=== PATIENT | female | born 1985 | race Caucasian/White ===

== ENCOUNTER 2019-10-20 21:51 | Emergency (ER) | payer BC, SELFPAY ==
[~2019-10-20] VITALS: Ht 177.8 cm; Wt 62.6 kg
[2019-10-20 21:55] VITALS: BP_SYST 130
[2019-10-20 22:37] LABS: BASOPHILS # (AUTO) 0.1 K/uL (0.0-0.2); BASOPHILS % (AUTO) 0.5 % (0.0-2.0); EOSINOPHILS # (AUTO) 0.5 K/uL (0.0-0.4); EOSINOPHILS % (AUTO) 4.5 % (0.0-4.0); HEMATOCRIT 47.1 % (36-48); HEMOGLOBIN 16.5 g/dL (12.0-16.0); LYMPHOCYTES # (AUTO) 4.7 K/uL (1.0-5.5); LYMPHOCYTES % (AUTO) 39.2 % (20.5-51.5); MEAN CORPUSCULAR HEMOGLOBIN 35 pg (27-31); MEAN CORPUSCULAR HGB CONC 35 % (32-36); MEAN CORPUSCULAR VOLUME 100 fL (79.0-98.0); MONOCYTES # (AUTO) 1.2 K/uL (0.0-1.0); MONOCYTES % (AUTO) 9.7 % (1.7-9.3); NEUTROPHILS # (AUTO) 5.5 K/uL (1.8-7.7); NEUTROPHILS % (AUTO) 46.1 % (40.0-70.0); PLATELET COUNT (AUTO) 222 K/uL (130-430); RED CELL DISTRIBUTION WIDTH 12.2 % (9.0-15.0); WHITE BLOOD COUNT (AUTO) 11.9 K/uL (4.8-10.8)
[2019-10-20] MEDS: ASPIRIN 81 MG TAB.CHEW PO ONE (22:38)
[2019-10-20 22:49] LABS: CALCIUM 8.5 mg/dL (8.4-11.0); CREATININE 0.91 mg/dL (0.55-1.30)
[2019-10-20 22:55] LABS: ALBUMIN 4.1 g/dL (3.4-4.8); TOTAL BILIRUBIN 0.9 mg/dL (0.0-1.0)
[2019-10-20 22:58] LABS: PROTHROMBIN TIME 10.2 SECS (9.5-12.5)
[2019-10-20 22:58] LABS: POTASSIUM 2.5 mmol/L (3.5-5.1)
[2019-10-20] MEDS: KCL 20 mEq in 100 mL (PREMIX) 100 ML IV ONE (23:10)
[2019-10-20] MEDS: POTASSIUM CHLORIDE 20 MEQ TAB.PRT.SR PO ONE (23:11)
[2019-10-21 00:33] LABS: BILIRUBIN,URINE NEGATIVE (NEGATIVE); BLOOD, URINE NEGATIVE (NEGATIVE); CLARITY/URINE CLEAR (CLEAR); COLOR,URINE YELLOW (YELLOW); GLUCOSE,URINE NEGATIVE (NEGATIVE); KETONES,URINE TRACE (NEGATIVE); LEUKOCYTE ESTERASE ,URINE NEGATIVE (NEGATIVE); NITRITE, URINE NEGATIVE (NEGATIVE); PROTEIN URINE NEGATIVE (NEGATIVE); UROBILINOGEN,URINE 0.2 (0.2-1.0)
[2019-10-21] MEDS: KETOROLAC TROMETHAMINE 30 MG VIAL IVP ONE (01:48)
[2019-10-21] MEDS: POTASSIUM CHLORIDE 20 MEQ TAB.PRT.SR PO ONE (02:13)
[2019-10-21 02:59] VITALS: BP_SYST 130
== END 2019-10-21 03:01 | disposition home or self-care (01) ==
LOC: SED 21:51 → EEVIPCON 21:51 → SED 10-21 03:01
DX: R07.89 Other chest pain (principal); E87.6 Hypokalemia; I10 Essential (primary) hypertension; F17.200 Nicotine dependence, unspecified, uncomplicated; Z20.828 Contact with and (suspected) exposure to other viral communicable diseases
CPT/HCPCS: 36415; 71045; 80053; 81003; 82550; 83880; 84484; 85025; 85379; 85610; 85730; 93005; 96365; 96375; 99285; C9803; J1885; J3480; U0003